=== PATIENT | male | born 1955 | race African-American/Black ===

== ENCOUNTER 2017-10-28 09:49 | Outpatient (CLI) | payer MEDICARE | END 2017-10-28 09:50 | disposition home or self-care (01) | LOC: BICRAD 09:49 | PROVIDERS: ATTEND Family Medicine | DX: I50.30 Unspecified diastolic (congestive) heart failure (principal); R60.9 Edema, unspecified | CPT/HCPCS: 71046; 80061; 81001; 82043; 83036; 83880; G0103; 36415; 80053; 84443; 85025 ==